=== PATIENT | female | born 1990 | race Caucasian/White ===

== ENCOUNTER → 2020-11-27 | Outpatient (CLI) | payer OTHER ==
--- NOTE | 2020-11-27 12:38 | KCIC ---
Abdominal MRI with MRCP without IV contrast INDICATION: 30-year-old woman with epigastric pain, nausea and vomiting. History of bile duct injury. COMPARISON: Abdomen pelvis CT with oral and IV contrast of 07/31/2018 TECHNIQUE: Multiplanar multisequence MR imaging of the abdomen without IV contrast FINDINGS: Hypertrophy of the left hepatic lobe with diffuse steatosis involving the left hepatic lobe and the c entral portions of hepatic segments 7 and 8 in the right hepatic lobe. No hepatic masses are apparent and there is no nodularity to the hepatic contour but the intrahepatic IVC is slitlike and the infrahepatic IVC is mildly distended measuring 2.4 cm transverse diameter, c ompared with a 1.5 cm outer wall diameter of the abdominal aorta at the same level. MRCP images show dilation of the right hepatic biliary radicles with an apparent abrupt cut off in th e anterior and posterior divisions of the right hepatic ducts. There is no evidence of choledocholith iasis. The gallbladder is surgically absent. The common bile duct is not dilated and shows normal com munication with the left hepatic biliary ducts. The spleen, pancreas, adrenal glands and kidneys are unremarkable. Included bowel shows scattered colonic diverticuli. No ascites, abdominal varices or adenopathy is ap parent. There is truncal obesity. Included lung bases are unremarkable. 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 Consider hepati c duplex ultrasound in evaluation of the patency and flow direction in the hepatic veins and of the I VC. Electronically signed by: Randy Coburn MD (11/27/2020 12:36 PM) [id number]
== END ==
LOC: KCIC MRI 09:12
PROVIDERS: ATTEND Internal Medicine Gastroenterology
DX: S36.13XA Injury of bile duct, initial encounter (principal); R74.8 Abnormal levels of other serum enzymes; K57.30 Diverticulosis of large intestine without perforation or abscess without bleeding; X58.XXXA Exposure to other specified factors, initial encounter; Y93.89 Activity, other specified; Y92.89 Other specified places as the place of occurrence of the external cause; Y99.8 Other external cause status
CPT/HCPCS: 74181